=== PATIENT | female | born 1995 | race Two or more races ===

== ENCOUNTER 2020-06-11 16:41 | Outpatient (REF) | payer OTHER, SELFPAY ==
[2020-06-11 18:01] LABS: Alanine Aminotransferase 11 U/L (0-31); Albumin Level 4.3 g/dL (3.5-5.0); Alkaline Phosphatase 70 U/L (39-117); Anion Gap 11 (12-20); Aspartate Amino Transferase 17 U/L (5-31); Bilirubin Total 0.2 mg/dL (0.0-1.0); Blood Urea Nitrogen 16 mg/dL (9-16); Carbon Dioxide 25 mmol/L (22-29); Chloride 107 mmol/L (96-108); Cholesterol 150 mg/dL; Estimated Glomerular Filt Rate > 60; Glucose Random 85 mg/dL (60-115); HDL Cholesterol 48 mg/dL; LDL Cholesterol Calculated 88 mg/dl; Potassium 4.1 mmol/l (3.3-5.1); Sodium 139 mmol/L (135-145); Total Protein 7.3 g/dL (6.5-8.0); Triglycerides 74 mg/dL
== END 2020-06-11 16:42 | disposition home or self-care (01) ==
LOC: HO.LAB 16:41
PROVIDERS: Visit Provider Dermatology
DX: L70.0 Acne vulgaris (principal); L85.3 Xerosis cutis
CPT/HCPCS: 80053; 80061

== ENCOUNTER 2020-09-15 10:48 | Emergency (ER) | payer OTHER, SELFPAY ==
[2020-09-15 10:49] VITALS: BP 127/68; PULSE 120; RESP 18; TEMP 36.7; O2SAT 100; BMI 23.5
--- NOTE | 2020-09-15 14:39 | ED_ITS ---
HPI - Skin/Abscess/Foreign Bdy General Chief complaint: Skin/Abscess/Foreign Body Stated complaint: hard lump chest area Time Seen by Provider: 09/15/20 10:53 Source: patient Mode of arrival: ambulatory History of Present Illness HPI narrative: 24-year-old female with no significant past medical history presenting to the ED complaining of hard painful lump to left upper anterior chest wall x1 week. Reports was initially like a white head and she picked at it without drainage/success. Denies fever, chills, drainage from area, erythema MD complaint: abscess/boil Related Data Previous Rx's Medication Instructions Recorded cephalexin [Keflex] 500 mg PO Q6H 7 Days #28 cap 09/15/20 sulfamethoxazole-trimethoprim 1 tab PO Q12H 7 Days #14 tab 09/15/20 [Bactrim DS] Allergies Allergy/AdvReac Type Severity Reaction Status Date / Time Penicillins [PENICILLINS] Allergy Unknown ONLY Unverified 05/23/20 19:40 FAMILY HISTORY - WAS TOLD NOT TO TAKE Review of Systems Review of Systems: Constitutional: No Weight loss, No Fever, No Chills Cardiovascular: No Chest Pain, No SOB Respiratory: No Cough Musculoskeletal: No joint pain Skin: + Skin Lesions, No rash Yes all other systems are reviewed and are negative [facility] Past Medical History Attestation statement: The following information was validated with the patient. Social History Social History Advance Directives: No Advance Directives Information Provided: No Physical Exam Vital Signs: Vital Signs: Last Vital Signs Temp 98.0 F 09/15/20 10:49 Pulse 100 09/15/20 14:41 Resp 18 09/15/20 14:41 BP 127/68 09/15/20 10:49 Pulse Ox 100 09/15/20 10:49 Body Mass Index 23.5 Const: General: cooperative and healthy appearing Orientation/consciousness: patient oriented x3 Limitations: no limitations HENMT: Head: Yes normal to inspection Ears: hearing grossly normal bilaterally General nose exam: Normal external nose present Face and sinus: Yes normal facial exam Eyes: General: appearance normal, both eyes and all related structures EOM: EOMs intact bilaterally Neck: Neck: Yes normal visual inspection and Yes no meningeal signs Resp: Effort & Inspection: normal respiratory effort Cardio: Rate: regular rate Skin: Other: + hard small indurated abscess noted to left anterior upper chest wall. No pointing, no drainage, no cellulitis/erythema, no fluctuance Rashes: no rashes Neuro: General: patient oriented x3 and no meningeal signs Gait exam (Neuro): Normal gait present Extrem: General: Yes normal to inspection MDM - Skin/Abscess/Foreign Bdy MDM Narrative Medical decision making narrative: On exam initially tachycardic which resolved upon repeat, NAD/nontoxic appearing. Exam consistent with early/indurated abscess. Discussed worrisome signs and symptoms and strict return precautions Discharge Plan Discharge Clinical Impression: Abscess Patient Disposition: Home, Self-Care Instructions: Abscess (ED), Abscess Follow-up (ED) Additional Instructions: You have an early abscess of her skin, Keflex and Bactrim antibiotics, take as prescribed You may apply warm compresses If area begins look infected, is red, there is drainage, streaking, you have fever return to the ED Prescriptions: New cephalexin [Keflex] 500 mg capsule 500 mg PO Q6H 7 Days Qty: 28 RF: 0 sulfamethoxazole-trimethoprim [Bactrim DS] 800-160 mg tablet 1 tab PO Q12H 7 Days Qty: 14 RF: 0 Referrals: Ximena Tomas MD [Primary Care Provider] - 3 days
[2020-09-15 14:41] VITALS: PULSE 100; RESP 18
== END 2020-09-15 15:00 | disposition home or self-care (01) ==
PROVIDERS: Emergency Provider Emergency Medicine; PCP Pediatrics
DX: L02.213 Cutaneous abscess of chest wall (principal); R07.89 Other chest pain; Z79.899 Other long term (current) drug therapy
CPT/HCPCS: 99283

== ENCOUNTER 2020-09-30 16:35 | Outpatient (REF) | payer OTHER, SELFPAY ==
[2020-09-30 18:07] LABS: Alanine Aminotransferase 11 U/L (0-31); Albumin Level 4.4 g/dL (3.5-5.0); Alkaline Phosphatase 72 U/L (39-117); Aspartate Amino Transferase 22 U/L (5-31); Bilirubin Direct < 0.2 mg/dL (0.0-0.5); Bilirubin Total 0.4 mg/dL (0.0-1.0); Cholesterol 168 mg/dL; HDL Cholesterol 50 mg/dL; LDL Cholesterol Calculated 99 mg/dl; Total Protein 7.6 g/dL (6.5-8.0); Triglycerides 99 mg/dL
== END 2020-09-30 16:36 | disposition home or self-care (01) ==
LOC: HO.LAB 16:35
PROVIDERS: PCP Pediatrics; Visit Provider Physician Assistant Medical
DX: L70.0 Acne vulgaris (principal); M79.10 Myalgia, unspecified site; L85.3 Xerosis cutis; Z79.899 Other long term (current) drug therapy
CPT/HCPCS: 36415; 80061; 80076

== ENCOUNTER 2024-08-24 14:35 | Emergency (ER) | payer MEDICARE, OTHER, SELFPAY ==
--- NOTE | 2024-08-24 14:36 | ECG_ITS ---
Test Reason : chest pain Blood Pressure : / mmHG Vent. Rate : 103 BPM Atrial Rate : 103 BPM P-R Int : 118 ms QRS Dur : 074 ms QT Int : 322 ms P-R-T Axes : 071 046 010 degrees QTc Int : [address] depression inferior and anterolateral leads Abnormal ECG No previous ECGs available Referred By: Generic ED Physician Electronically Signed By:SATYA SCHULTE
[2024-08-24 14:42] VITALS: BP 111/66; PULSE 103; RESP 20; TEMP 37.6; O2SAT 100; BMI 24.4
--- NOTE | 2024-08-24 14:43 | ED.GENADULT ---
HPI - General Adult General Chief complaint: Chest Pain Stated complaint: Chest pain Time Seen by Provider: 08/24/24 16:14 Source: patient and RN notes reviewed Mode of arrival: ambulatory Limitations: no limitations History of Present Illness ED Provider: Gricelda Krishna PA-C HPI narrative: This is a 53-[id number]-female, with a hx of vitamin d deficiency and anemia, who presents to the ER due to generalized fatigue x 1 month. She states she started a new job which requires long days, working from 8am until 9pm. She states that she has had upper neck/shoulder pain, and has been very stressed with this job. She reports that she has not been eating food throughout the day as she is so busy. She states that she feels tired throughout the day. She denies any fevers, chills, chest pain, palpitations, abdominal pain, nausea, vomiting, diarrhea, constipation. No night sweats. She also reports that her left breast has been sore, no rashes, nipple discharge. She reports that this is typical before her menses - states that she is due to get her menses tomorrow. No other complaints or concerns at this time. MD complaint: fatigue Onset (ago): week(s) Relieving factors: none Exacerbating factors: none Associated symptoms: denies other symptoms Treatments prior to arrival: none Related Data Previous Rx's ?Medication ?Instructions ?Recorded cephalexin 500 mg capsule (Keflex) 500 mg PO Q6H 7 days #28 caps 09/15/20 sulfamethoxazole 800 1 tab PO Q12H 7 days #14 tabs 09/15/20 mg-trimethoprim 160 mg tablet (Bactrim DS) Allergies Allergy/AdvReac Type Severity Reaction Status Date / Time Penicillins [PENICILLINS] Allergy Unknown ONLY Verified 08/24/24 14:45 FAMILY HISTORY - WAS TOLD NOT TO TAKE Review of Systems Review of Systems: Yes all other systems are reviewed and are negative Constitutional: Constitutional: Reports as per [facility] Social History Social History Advance Directives: No Advance Directives Information Provided: No Do you have a plan to hurt others: No Plan Physical Exam ED Vital Signs: Vital Signs - 24 hr 08/24/24 14:42 08/24/24 17:27 08/24/24 18:01 Temperature 99.6 F 97.9 F 97.9 F Pulse Rate 103 H 100 100 Respiratory Rate 20 18 18 Blood Pressure 111/66 105/53 L 105/53 L Pulse Oximetry 100 99 99 Oxygen Delivery Method Room Air Room Air Room Air BMI result Body Mass Index 24.4 Const General: cooperative, comfortable and no acute distress Orientation/consciousness: patient oriented x3 Limitations: no limitations HENMT Head: Yes normal to inspection, Yes normocephalic and Yes atraumatic Ears: hearing grossly normal bilaterally General nose exam: Normal external nose present Face and sinus: Yes normal facial exam Mouth: Normal oral and palatal mucosa present, oropharynx normal and moist mucous membranes Throat: Yes posterior oropharynx normal Eyes General: appearance normal, both eyes and all related structures Eyelids: Yes eyelids normal Conjunctivae: conjunctivae normal Sclerae: sclerae normal Pupils: Equal, round and reactive pupils present EOM: EOMs intact bilaterally Neck Neck: Yes normal visual inspection, Yes full ROM, Yes no lymphadenopathy and Yes no meningeal signs Lymphatic: no lymphadenopathy noted Chest Other: Breast examination performed with orthotic finish grinding technician present. Left breast with no overlying skin changes. No masses palpated. no peau d' orange skin. no nipple discharge. fibrocystic breast tissue noted. Chest palpation & inspection: normal inspection of the chest Resp Effort & Inspection: normal respiratory effort and able to speak in complete sentences Auscultation: clear to auscultation bilaterally, no crackles, no rales, no rhonchi and no wheezes Cardio Rate: regular rate Rhythm: regular rhythm Heart sounds: S1 normal heart sound present and S2 normal heart sound present GI Inspection: Yes normal to inspection Back/Spine/Pelvis Other: Upper trapezius ttp with spasms noted. no midline spine ttp Skin General skin exam: no rashes or lesions noted Trauma: no lacerations or abrasions Wounds: no wounds Neuro General: patient oriented x3, moves all extremities and no meningeal signs Cranial nerves: Yes Equal, round and reactive pupils present Extrem General: Yes normal to inspection Right upper extremity: normal to inspection Left upper extremity: normal to inspection Right lower extremity: normal to inspection Left lower extremity: normal to inspection Course Course Course Narrative: This is a Rapid Medical Examination (RME) performed by Kranthi Nguyễn PA-C in triage. Full HPI, ROS, assessment and treatment plan per primary provider in the Main ED. 28 yo female with history of anemia and vit d deficiency who presents to the ER for evaluation of bilateral breast pain L>R for the last 1 week, bilateral shoulder pain and fatigue. she reports dizziness with standing as well. no sob. pain is in the left chest with palpation only. menstrual cycle due tomorrow Plan: Medical Decision Making Medical Decision Making [facility] Narrative: 28 y/o F who presents to the ER with complaints of fatigue. On arrival, pt well appearing, under no acute distress. She reports recent change in job which is demanding for her and is long hours. She has not been eating throughout the day. Labs were performed, she has no evidence of anemia, vitamin d level 35 which is on the lower end of normal > advised to try OTC supplementation. Left breast exam normal. pt had reassuring examation and workup today. She has had no red flag symptoms, no recent weight loss, chest pain, SOB, no changes in stool, no night sweats. Pt had normal examination therefore symptoms may be attributed to change in employment, stress and not eating throughout the day. Discussed the importance of eating throughout the day and f.u with PCP. Discussed returnn precautions. Stable for d.c, Differential Diagnosis Differential Diagnoses: The differential diagnosis associated with the presentation includes anemia, electrolyte derangement, viral syndrome, breast abscess Lab Data [facility] Lab Attestation statement: I reviewed the patient's lab results. No leukocytosis, stable H&H, chem WNL, TSH WNL, upreg neg, ua not infectious 08/24/24 15:26 08/24/24 15:26 Labs: Lab Results 08/24/24 08/24/24 Range/Units 15:26 15:28 WBC 7.9 (4.8-10.8) X10*3/uL RBC 4.02 L (4.20-5.50) X10*6/uL Hgb 12.6 (12.0-16.0) g/dl Hct 36.3 L (37.0-47.0) % MCV 90.3 (80.0-98.0) fL MCH 31.3 (27.0-33.0) pg MCHC 34.7 (31.0-35.0) g/dl RDW 13.2 (11.0-16.0) % Plt Count 189 (160-400) X10*3/uL MPV 11.0 (9.4-12.3) fL Immature Gran % (Auto) 0.3 (0.0-0.4) % Neut % (Auto) 82.9 H (45-73) % Lymph % (Auto) 11.8 L (20-40) % Person % (Auto) 4.9 (2-11) % Eos % (Auto) 0.0 (0-4) % Baso % (Auto) 0.1 (0-2) % Lymph # (Auto) 0.9 L (1.2-4.9) X10*3/uL Person # (Auto) 0.4 (0.1-1.2) X10*3/uL Eos # (Auto) 0.0 (0.0-0.4) X10*3/uL Baso # (Auto) 0.0 (0.0-0.2) X10*3/uL Abs Immat Gran (auto) 0.02 (0.00-0.03) X10*3/uL Absolute Neuts (auto) 6.6 (2.0-8.3) x10*3/uL Absolute Nucleated RBC 0.000 (0.0-0.012) X10*3/uL Nucleated RBC % (auto) 0.0 (0.0-0.2) /100WBC Sodium 139 (135-145) mmol/L Potassium 4.2 (3.3-5.1) mmol/L Chloride 108 (96-108) mmol/L Carbon Dioxide 23 (22-29) mmol/L Anion Gap 12 (12-20) BUN 11 (9-16) mg/dL Creatinine 0.71 (0.5-1.4) mg/dL Estim Creat Clear Calc 111.4 Estimated GFR > 60 Random Glucose 98 (60-115) mg/dL Calcium 9.2 (8.4-10.2) mg/dL Magnesium 1.9 (1.6-2.6) mg/dL Total Bilirubin 0.4 (0.0-1.0) mg/dL Direct Bilirubin 0.2 (0.0-0.5) mg/dL AST 20 (5-31) U/L ALT 13 (0-31) U/L Alkaline Phosphatase 54 (39-117) U/L Troponin I High Sens < 2.7 (<3.5-17.0) ng/L Total Protein 7.1 (6.5-8.0) g/dL Albumin 4.3 (3.5-5.0) g/dL 25-OH Vitamin D Total 35.7 (>30) ng/mL TSH 0.94 (0.32-4.0) uIU/mL Urine Color Yellow Urine Appearance Clear Urine pH 5.5 (5.0-9.0) Ur Specific [place] 1.020 (1.005-1.025) Urine Protein Negative (Neg-Trace) mg/dL Urine Glucose (UA) Negative (Negative) mg/dL Urine Ketones 80 (Negative) mg/dL Urine Blood Small (1+) H (Negative) Urine Nitrite Negative (Negative) Ur Leukocyte Esterase Negative (Negative) Urine RBC 3-5 H (0-2) /HPF Urine WBC 0-5 (0-5) /HPF Ur Squamous Epith Cells 3-5 (0-2) /HPF Urine Bacteria Trace (None Seen) Hyaline Casts 0-2 (0-2) /LPF Urine Test NEGATIVE (NEGATIVE) Independent Interpretation I performed an independent interpretation of an: EKG Interpretation: EKG sinus tach at 103bpm, no st elevation or depression. Discharge Plan Discharge Clinical Impression: Fatigue Patient Disposition: Home, Self-Care Instructions: Fatigue (ED) Additional Instructions: You were seen in the emergency department today. Your blood work was reassuring. Please drink plenty of fluids get plenty of rest. It is very important that you continue to eat throughout the day, small meals/snacks can be very beneficial. Follow-up with your primary care physician. If any new or worsening symptoms occur including but not limited to worsening breast pain, changes in skin overlying the breast, worsening fatigue, please seek emergent care. Prescriptions: No Action cephalexin [Keflex] 500 mg capsule 500 mg PO Q6H 7 Days Qty: 28 0RF sulfamethoxazole-trimethoprim [Bactrim DS] 800-160 mg tablet 1 tab PO Q12H 7 Days Qty: 14 0RF Stand Alone Forms: Work/School Release Interventions: ED Discharge Assessment Last Done: 08/24/24 18:01 Discharge Date/Time: 08/24/24 18:04 Print Language: Irish
[2024-08-24 15:33] LABS: MANUAL DIFF FLAG NO
[2024-08-24 15:37] LABS: Appearance Urine Clear; Color Urine Yellow; Glucose Urine UA Negative (Negative); Leukocyte Esterase Urine Negative (Negative); Nitrite Urine Negative (Negative); PH 5.5 (5.0-9.0); UMIC TRIGGER UACC YES; Urine Blood Small (1+) (Negative); Urine Ketones 80 mg/dL (Negative); Urine Protein Negative (Neg-Trace)
[2024-08-24 15:38] LABS: Basophils Percent Auto 0.1 % (0-2); Hematocrit 36.3 % (37.0-47.0); Hemoglobin 12.6 g/dl (12.0-16.0); Imm Gran Abs Auto 0.02 X10*3/uL (0.00-0.03); Imm Gran Pct Auto 0.3 % (0.0-0.4); Lymphocytes Absolute Auto 0.9 X10*3/uL (1.2-4.9); Lymphocytes Percent Auto 11.8 % (20-40); Mean Corpuscular HGB Conc 34.7 g/dl (31.0-35.0); Mean Corpuscular Hemoglobin 31.3 pg (27.0-33.0); Mean Corpuscular Volume 90.3 fL (80.0-98.0); Monocytes Absolute Auto 0.4 X10*3/uL (0.1-1.2); Monocytes Percent Auto 4.9 % (2-11); Neutrophils Absolute Auto 6.6 x10*3/uL (2.0-8.3); Neutrophils Percent Auto 82.9 % (45-73); Platelet Count 189 X10*3/uL (160-400); Red Blood Count 4.02 X10*6/uL (4.20-5.50); Red Cell Distribution Width 13.2 % (11.0-16.0); White Blood Count 7.9 X10*3/uL (4.8-10.8)
[2024-08-24 15:39] LABS: UPreg QC Valid YES; Urine Pregnancy NEGATIVE (NEGATIVE)
[2024-08-24 15:48] LABS: Bacteria Urine Trace (None Seen); Hyaline Casts Urine 0-2 /LPF (0-2); WBC Urine 0-5 /HPF (0-5)
[2024-08-24 16:04] LABS: Albumin Level 4.3 g/dL (3.5-5.0); Anion Gap 12 (12-20); Aspartate Amino Transferase 20 U/L (5-31); Bilirubin Direct 0.2 mg/dL (0.0-0.5); Bilirubin Total 0.4 mg/dL (0.0-1.0); Blood Urea Nitrogen 11 mg/dL (9-16); Calcium 9.2 mg/dL (8.4-10.2); Carbon Dioxide 23 mmol/L (22-29); Chloride 108 mmol/L (96-108); Creatinine Clr Calc Pharmacy 111.4; Estimated Glomerular Filt Rate > 60; Glucose Random 98 mg/dL (60-115); Magnesium 1.9 mg/dL (1.6-2.6); Potassium 4.2 mmol/L (3.3-5.1); Sodium 139 mmol/L (135-145); Total Protein 7.1 g/dL (6.5-8.0)
[2024-08-24 16:25] LABS: Alanine Aminotransferase 13 U/L (0-31); Alkaline Phosphatase 54 U/L (39-117); TSH reflex Free T4 0.94 uIU/mL (0.32-4.0)
[2024-08-24 17:05] LABS: Vitamin D 25-OH Total 35.7 ng/mL (>30)
[2024-08-24 17:10] LABS: Troponin-I High Sensitivity < 2.7 ng/L (<3.5-17.0)
[2024-08-24 17:27] VITALS: BP 105/53; PULSE 100; RESP 18; TEMP 36.6; O2SAT 99
[2024-08-24 18:01] VITALS: BP 105/53; PULSE 100; RESP 18; TEMP 36.6; O2SAT 99
== END 2024-08-24 18:04 | disposition home or self-care (01) ==
PROVIDERS: Physician Assistant; Physician Assistant Medical; Emergency Provider Emergency Medicine
DX: R53.83 Other fatigue (principal); R00.0 Tachycardia, unspecified; E55.9 Vitamin D deficiency, unspecified
CPT/HCPCS: 36415; 80048; 80076; 81001; 81025; 82306; 83735; 84443; 84484; 85025; 93005; 99283; 99284

== ENCOUNTER → 2024-08-24 14:36 | Outpatient (BNV) | payer MEDICARE, OTHER, SELFPAY | PROVIDERS: Emergency Provider Emergency Medicine; Visit Provider Internal Medicine | DX: R07.9 Chest pain, unspecified (principal); R00.0 Tachycardia, unspecified | CPT/HCPCS: 93010 ==

== ENCOUNTER 2024-09-09 12:48 | Emergency (ER) | payer OTHER, SELFPAY ==
--- NOTE | ~2024-09-09 | XR_ITS ---
CLINICAL HISTORY: pain 3 view right shoulder Comparison: None Findings: No fractures or dislocations. No significant loss of joint space or osteophytes. No erosions. No radiopaque foreign body. IMPRESSION: 1. No acute findings This document has been electronically signed by: Nelly Lora MD on 09/09/2024 14:00:05
--- NOTE | ~2024-09-09 | XR_ITS ---
CLINICAL HISTORY: neck pain 3 views cervical spine Comparison: CT/SR - CAT SCAN CERVICAL SPINE 45618 - 05/08/20 14:43 EDT Findings: The prior CT report is not available for review. No acute fractures or dislocation. Mild degenerative changes of the cervical spine with small osteophytes and mild narrowing of the C4-C5 intervertebral disc space. There is mild reversal of the cervical lordosis. Prevertebral soft tissues within normal limits. IMPRESSION: No acute findings. Mild degenerative changes. This document has been electronically signed by: Nelly Lora MD on 09/09/2024 16:34:03
--- NOTE | ~2024-09-09 | XR_ITS ---
CLINICAL HISTORY: pain 3 view left shoulder Comparison: None Findings: Bones intact. No dislocations. No significant loss of joint space or osteophytes. No erosions. No radiopaque foreign body. IMPRESSION: 1. No acute findings. This document has been electronically signed by: Nelly Lora MD on 09/09/2024 14:00:18
--- NOTE | 2024-09-09 13:04 | ED_ITS ---
HPI - Neck Pain/Injury General Chief Complaint: Extremity Injury, Upper Stated Complaint: l sided neck pain down into l arm Time Seen by Provider: 09/09/24 13:50 Source: patient and RN notes reviewed Mode of arrival: ambulatory Limitations: no limitations History of Present Illness ED Provider: Gricelda Krishna PA-C HPI Narrative: This is a 28-year-old female, with no known medical problems, who presents emergency department with complaints of upper back and neck pain for several months. Patient reports that she is under a lot of stress, and believes that she has muscle spasms in her upper neck and back. She states that she occasionally gets pain down her posterior arm, and into her fingers. She reports sometimes her fingers also go numb. She denies any recent trauma or injury to her back or neck. She reports that she does not have the greatest posture while she was at work. She has gone to a chiropractor, as well as gotten a massage in the past which has provided her with minimal relief. She also reports that she has been taking ibuprofen and Tylenol as needed for pain. Denies any fevers, chills, chest pain, shortness of breath, abdominal pain, nausea, vomiting or diarrhea. No other complaints or concerns at this time. MD complaint: upper back pain Onset (ago): month(s) Quality: burning, tingling and spasming Duration: constant Relieving factors: none Associated symptoms: none Treatments prior to arrival: none Related Data Previous Rx's ?Medication ?Instructions ?Recorded cephalexin 500 mg capsule (Keflex) 500 mg PO Q6H 7 days #28 caps 09/15/20 sulfamethoxazole 800 1 tab PO Q12H 7 days #14 tabs 09/15/20 mg-trimethoprim 160 mg tablet (Bactrim DS) acetaminophen 500 mg tablet 1,000 mg (2 x 500 mg) PO .Q8Hr PRN 09/09/24 (Tylenol Extra Strength) pain #30 tabs cyclobenzaprine 10 mg tablet 10 mg PO TID PRN muscle spasm #12 09/09/24 tabs ibuprofen 600 mg tablet 600 mg PO Q6H PRN pain #30 tabs 09/09/24 lidocaine 5 % topical patch 1 patch topical DAILY #30 ea 09/09/24 (Lidoderm) Allergies Allergy/AdvReac Type Severity Reaction Status Date / Time Penicillins [PENICILLINS] Allergy Unknown ONLY Verified 09/09/24 13:08 FAMILY HISTORY - WAS TOLD NOT TO TAKE Review of Systems Review of Systems: Yes all other systems are reviewed and are negative Constitutional: Constitutional: Reports as per [facility] Social History Social History Advance Directives: No Advance Directives Information Provided: No Physical Exam Vital Signs: Vital Signs: Last Vital Signs Temp 97.6 F 09/09/24 17:23 Pulse 105 H 09/09/24 17:23 Resp 18 09/09/24 17:23 BP 106/78 09/09/24 17:23 Pulse Ox 98 09/09/24 17:23 O2 Del Method Room Air 09/09/24 17:23 BMI result Body Mass Index 24.9 Const: General: cooperative, comfortable and no acute distress Orientation/consciousness: patient oriented x3 Limitations: no limitations HEENT: Head: Yes normal to inspection, Yes normocephalic and Yes atraumatic Ears: hearing grossly normal bilaterally General nose exam: Normal external nose present Face and sinus: Yes normal facial exam Mouth: Normal oral and palatal mucosa present, oropharynx normal and moist mucous membranes Throat: Yes posterior oropharynx normal Eyes: General: appearance normal, both eyes and all related structures Eyelids: Yes eyelids normal Conjunctivae: conjunctivae normal Sclerae: sclerae normal Pupils: Equal, round and reactive pupils present EOM: EOMs intact bilaterally Neck: Other: No midline spine tenderness on examination, she does have tenderness palpation along the cervical paraspinous muscles Neck: Yes normal visual inspection, Yes full ROM and Yes no lymphadenopathy Lymphatic: no lymphadenopathy noted Chest: Chest palpation & inspection: normal inspection of the chest Resp: Effort & Inspection: normal respiratory effort and able to speak in complete sentences Auscultation: clear to auscultation bilaterally, no crackles, no rales, no rhonchi and no wheezes Cardio: Rate: regular rate Rhythm: regular rhythm Heart sounds: S1 normal heart sound present and S2 normal heart sound present GI: Inspection: Yes normal to inspection Back/Spine/Pelvis: Other: extending into the left subscapular region, with spasm noted. Pain elicited with movement of her left shoulder. No overlying skin changes or rashes noted. She reports some pain extending down into her posterior arm overlying her tricep. Skin: General skin exam: no rashes or lesions noted Trauma: no lacerations or abrasions Wounds: no wounds Neuro: General: patient oriented x3 and moves all extremities Cranial nerves: Yes Equal, round and reactive pupils present Extrem: General: Yes normal to inspection Right upper extremity: normal to inspection Left upper extremity: normal to inspection Right lower extremity: normal to inspection Left lower extremity: normal to inspection Course Course Course Narrative: This is a Rapid Medical Exam performed in triage by Tracy Espinosa PA-C. Full HPI, ROS and PE to be performed by primary ED provider. 28 yo F presenting to the ED c/o bilateral shoulder pain radiating to neck and left scapula x months. +intermittent with associated LUE tingling. denies known injury/fall. denies MVA, chiropractor PE: comfortable, nontoxic appearing. Plan: EKG, XRs Medical Decision Making Medical Decision Making [facility] Narrative: This is a 28-year-old female who presents emergency department with complaints of left-sided neck pain extending down into her left arm. This has been ongoing for several months. On arrival, patient mildly tachycardic at 105bpm, all other vital signs within normal limits. She is speaking full sentences under no acute distress. She has tenderness palpation along the left cervical paraspinous muscles extending into her left trapezius, with spasms noted. X-rays were obtained of her shoulders which were unremarkable. Given pain radiating down into her left arm, a cervical spine x-ray was obtained, she does have degenerative changes seen at her C4-C5 region, which may explain cervical radiculopathy like symptoms. I did explain this to patient. Will treat with anti-inflammatories, Tylenol, also given muscle relaxants as I believe she also has muscle spasms which is contributing to her symptoms. She will follow-up with a primary care physician. She has called multiple facilities and they are not accepting patients. I encouraged her to continue trying. Given strict return precautions. She understands agrees with plan. Patient stable for discharge Differential Diagnosis Differential Diagnoses: The differential diagnosis associated with the presentation includes Cervical radiculopathy, muscle spasms, cervical strain Admission/Observation Consideration of admission/observation: Escalation of care including admission/observation considered Radiology Impression Discussion of test interpretation with radiology: I have reviewed the radiologist's reading. Radiologist Impression: Findings: The prior CT report is not available for review. No acute fractures or dislocation. Mild degenerative changes of the cervical spine with small osteophytes and mild narrowing of the C4-C5 intervertebral disc space. There is mild reversal of the cervical lordosis. Prevertebral soft tissues within normal limits. IMPRESSION: No acute findings. Mild degenerative changes. This document has been electronically signed by: Nelly Lora MD on 09/09/2024 16:34:03 Findings: Bones intact. No dislocations. No significant loss of joint space or osteophytes. No erosions. No radiopaque foreign body. IMPRESSION: 1. No acute findings. This document has been electronically signed by: Nelly Lora MD on 09/09/2024 14:00:18 Dictated By: Nelly Lora MD Signed By: <Electronically signed by Nelly Lora MD in [place]> CLINICAL HISTORY: pain 3 view right shoulder Comparison: None Findings: No fractures or dislocations. No significant loss of joint space or osteophytes. No erosions. No radiopaque foreign body. IMPRESSION: 1. No acute findings This document has been electronically signed by: Nelly Lora MD on 09/09/2024 14:00:05 Dictated By: Nelly Lora MD Signed By: <Electronically signed by Nelly Lora MD in [place]> Discharge Plan Discharge Clinical Impression: Spasm of left trapezius muscle, Cervical radiculopathy Patient Disposition: Home, Self-Care Instructions: Cervical Radiculopathy (ED), Muscle Spasm (ED) Additional Instructions: You were seen in the emergency department due to upper back pain, and shoulder pain. You Your shoulder x-ray do not show any bony abnormality. Your x-ray of your neck does reveals small osteophytes and mild narrowing of the C4-C5 disc space, this may be the source of some pain. You need to have a primary care physician for follow-up as referral to physical therapy can help with this. Alternating between ibuprofen and Tylenol as needed for pain. You may take muscle relaxants as needed for pain. Gentle stretching, heat or ice can also help. If any new or worsening symptoms occur including but not limited to worsening pain, fevers, chills, chest pain, shortness for breath, please seek emergent care. You can try to follow-up with the [facility]. I am also giving you a referral to Dr. Astorga who is located on [address] [place] [address]. [phone] Prescriptions: New ibuprofen 600 mg tablet 600 mg PO Q6H PRN (Reason: pain) Qty: 30 0RF acetaminophen [Tylenol Extra Strength] 500 mg tablet 1,000 mg PO .Q8Hr PRN (Reason: pain) Qty: 30 0RF cyclobenzaprine 10 mg tablet 10 mg PO TID PRN (Reason: muscle spasm) Qty: 12 0RF lidocaine [Lidoderm] 5 % adhesive patch,medicated 1 patch topical DAILY Qty: 30 0RF Rx Instructions: leave on most painful area for up to 12 hrs No Action cephalexin [Keflex] 500 mg capsule 500 mg PO Q6H 7 Days Qty: 28 0RF sulfamethoxazole-trimethoprim [Bactrim DS] 800-160 mg tablet 1 tab PO Q12H 7 Days Qty: 14 0RF Referrals: [facility] [Physician] - Interventions: ED Discharge Assessment Last Done: 09/09/24 17:23 Discharge Date/Time: 09/09/24 17:29 Print Language: Indian
[2024-09-09 13:05] VITALS: BP 106/78; PULSE 105; RESP 18; TEMP 36.4; O2SAT 98; BMI 24.9
--- NOTE | 2024-09-09 13:07 | ECG_ITS ---
Test Reason : LUE TIRGLING Blood Pressure : / mmHG Vent. Rate : 111 BPM Atrial Rate : 111 BPM P-R Int : 112 ms QRS Dur : 078 ms QT Int : 294 ms P-R-T Axes : 072 039 018 degrees QTc Int : 399 ms Sinus tachycardia Anterior infarct , age undetermined Abnormal ECG When compared with ECG of 24-AUG-2024 14:41, No significant change was found Referred By: Tracy Espinosa Electronically Signed By:SUKUMAR ROSEN MD
[2024-09-09 17:23] VITALS: BP 106/78; PULSE 105; RESP 18; TEMP 36.4; O2SAT 98
== END 2024-09-09 17:29 | disposition home or self-care (01) ==
PROVIDERS: Emergency Provider Emergency Medicine
DX: M62.838 Other muscle spasm (principal); M54.12 Radiculopathy, cervical region; M54.2 Cervicalgia; R20.2 Paresthesia of skin
CPT/HCPCS: 72040; 73030; 93005; 99283

== ENCOUNTER → 2024-09-09 13:07 | Outpatient (BNV) | payer OTHER, SELFPAY | PROVIDERS: Emergency Provider Emergency Medicine; Visit Provider Internal Medicine Cardiovascular Disease | DX: R00.0 Tachycardia, unspecified (principal); R94.31 Abnormal electrocardiogram [ECG] [EKG] | CPT/HCPCS: 93010 ==

== ENCOUNTER 2025-03-08 09:02 | Outpatient (REF) | payer OTHER, SELFPAY ==
--- OUTSIDE RECORDS SUMMARY | 2025-03-08 09:16 | XMS_ITS | Encounter Summary ---
Author Organization [facility] Address [address] [place] [address] Phone Care Team Providers Care Irrigation Equipment Remover Name Role Phone Ximena Tomas MD Primary Care Provider [phone] Encounter Details Date Type Department Care Team (Late st Contact Info) Description 08/16/2013 Conversion Encounter [facility] [address] [facility] [place] [address] Social History Tobacco Use Types Packs/Day Years Used Date Smoking Tobacco: Never Comments:Never Smoker Comments Unknown Sex and Gender Information Value Date Recorded Sex Assigned at Female 12/06/2019 1:16 PM EDT Legal Sex Female 6:13 PM EDT Gender Identity Female 12/06/2019 1:16 PM EDT Sexual Orientation Straight 12/06/2019 1: 16 PM EDT documented as of this encounter Plan of Treatment Not on file documented as of this encounter Visit Diagnoses Not on filedocumented in this encounter Care Teams Irrigation Equipment Remover Relationship Specialty Start Date End Date Ximena Tomas MD PCP - General 01/12/18 documented as of this encounter
--- OUTSIDE RECORDS SUMMARY | 2025-03-08 09:16 | XMS_ITS | Clinical Summary ---
Author Organization [facility] Address [address] [place] [address] Phone Care Team Providers Care Client Service And Consulting Manager Name Role Phone Physician, No Pcp Primary Care Provider Unavaila ble Allergies No known active allergies Social History Tobacco Use Types Packs/Day Years Used Date Smoking Tobacco: Never Assessed Comments Unknown Sex and Gender Information Value Date Recorded Sex Assigned at Not on file Legal Sex Female 10:02 AM EST Gender Identity Not on file Sexual Orientation Not on file Last Filed Vital Signs Vital Sign Reading Time Taken Comments Blood Pressure 106/74 10/03/2024 2:54 PM EST Pulse 108 10/03/2024 2:54 PM EST Temperature 36.6 C (97.9 F) 10/03/2024 2:54 PM EST Respiratory Rate 14 10/03/2024 2:54 PM EST Oxygen Saturation 100% 10/03/2024 2:54 PM EST Inhaled Oxygen Concentration - - Weight 68 kg (150 lb) 10/03/2024 10:00 AM EST Height 167.6 cm (5' 6 ) 10/03/2024 10:00 AM EST Body Mass Index 24.21 10/03/2024 10:00 AM EST Plan of Treatment Health Maintenance Due Date Last Done Comments Cervical Cancer Screening: Pap Smear 2017 COVID-19 Vaccine ( season) 2024 02/11/2022, 12/26/2021 Depression Screening 10/03/2024 HIV Screening 10/03/2024 Hepatitis C Screening 10/03/2024 Social Influencers of Health Screening 10/03/2024 Influenza Vaccine (Season Ended) 2025 06/30/2023, 06/30/2022 DTaP,Tdap,and Td Vaccines (6 - Td or Tdap) 07/04/2034 07/04/2024, 05/20/2012, 10/01/2011, Additional history exists MMR Vaccines Completed 01/14/2011, 12/15/2010 Hepatitis A Vaccines Completed 10/01/2011, 01/29/20 11 Hepatitis B Vaccines Completed 10/01/2011, 01/14/2011, 12/15/2010 IPV Vaccines Completed 02/03/2013, 01/04, 12/15/2010, Additional history exists Meningococcal ACWY Vaccine Completed 09/09/2015, HPV Vaccines Completed 04/30/2021, 01/2018, 09/25/2016 HIB Vaccines Aged Out No longer eligi ble based on patient's age to complete this topic Meningococcal B Vaccine Aged Out No l onger eligible based on patient's age to complete this topic Pneumococcal Vaccine: Pediatrics (0 to 5 Years) and At-Risk Patients (6 to 64 Years) Aged Out No longer eligible based on patient's age to complete this topic RSV Immunization Patients Under 20 months Aged Out No longer eligible based on patient's age to complete this topic Varicella Vaccines Aged Out No longer eligible based on patient's age to complete this topic Insurance MEDICAID - [place] Care Teams Client Service And Consulting Manager Relationship Specialty Start Date End Date Physician, No Pcp PCP - General 10/03/24
[2025-03-08 09:29] LABS: MANUAL DIFF FLAG NO
[2025-03-08 09:39] LABS: Hematocrit 43.4 % (37.0-47.0); Hemoglobin 14.9 g/dl (12.0-16.0); Imm Gran Abs Auto 0.03 X10*3/uL (0.00-0.03); Imm Gran Pct Auto 0.3 % (0.0-0.4); Lymphocytes Absolute Auto 2.5 X10*3/uL (1.2-4.9); Mean Corpuscular HGB Conc 34.3 g/dl (31.0-35.0); Mean Corpuscular Hemoglobin 31.4 pg (27.0-33.0); Mean Corpuscular Volume 91.6 fL (80.0-98.0); NRBC Abs Auto 0.000 X10*3/uL (0.0-0.012); NRBC Pct Auto 0.0 /100WBC (0.0-0.2); Platelet Count 219 X10*3/uL (160-400); Red Blood Count 4.74 X10*6/uL (4.20-5.50); White Blood Count 8.8 X10*3/uL (4.8-10.8)
[2025-03-08 10:27] LABS: Alanine Aminotransferase 14 U/L (0-31); Albumin Level 4.7 g/dL (3.5-5.0); Alkaline Phosphatase 58 U/L (39-117); Anion Gap 9 (12-20); Aspartate Amino Transferase 17 U/L (5-31); Blood Urea Nitrogen 14 mg/dL (9-16); Calcium 9.3 mg/dL (8.4-10.2); Carbon Dioxide 26 mmol/L (22-29); Chloride 105 mmol/L (96-108); Estimated Glomerular Filt Rate > 60; Magnesium 2.2 mg/dL (1.6-2.6); Potassium 3.9 mmol/L (3.3-5.1); Sodium 136 mmol/L (135-145); Total Protein 7.6 g/dL (6.5-8.0)
== END 2025-03-08 09:03 | disposition home or self-care (01) ==
LOC: HO.LAB 09:02
PROVIDERS: PCP Internal Medicine; Visit Provider Internal Medicine
DX: G57.71 Causalgia of right lower limb (principal); N94.6 Dysmenorrhea, unspecified; R25.3 Fasciculation; Z00.00 Encounter for general adult medical examination without abnormal findings
CPT/HCPCS: 36415; 80053; 82306; 83735; 85025

== ENCOUNTER 2025-04-06 11:47 | Emergency (ER) | payer OTHER, SELFPAY ==
[2025-04-06 12:01] VITALS: BP 109/71; PULSE 87; RESP 16; TEMP 36.7; O2SAT 100; BMI 23.6
--- NOTE | 2025-04-06 12:02 | ED.GENADULT ---
HPI - General Adult General Chief complaint: General Medical Stated complaint: Lump/pain L breast Time Seen by Provider: 04/06/25 12:09 Source: patient Mode of arrival: ambulatory Limitations: no limitations History of Present Illness ED Provider: Franklin Murray PA-C HPI narrative: 29-year-old female with a history of fibrocystic breasts presents to the ED due to concerns over left breast lump. Patient states over the last week she has noticed a left breast lump, is movable, does not her but becomes irritated after continuous manipulation. Patient states last menstrual period was 03/16. Patient denies drainage from the left breast, skin changes over left breast, fever, chills Related Data Previous Rx's ?Medication ?Instructions ?Recorded cephalexin 500 mg capsule (Keflex) 500 mg PO Q6H 7 days #28 caps 09/15/20 sulfamethoxazole 800 1 tab PO Q12H 7 days #14 tabs 09/15/20 mg-trimethoprim 160 mg tablet (Bactrim DS) acetaminophen 500 mg tablet 1,000 mg (2 x 500 mg) PO .Q8Hr PRN 09/09/24 (Tylenol Extra Strength) pain #30 tabs cyclobenzaprine 10 mg tablet 10 mg PO TID PRN muscle spasm #12 09/09/24 tabs ibuprofen 600 mg tablet 600 mg PO Q6H PRN pain #30 tabs 09/09/24 lidocaine 5 % topical patch 1 patch topical DAILY #30 ea 09/09/24 (Lidoderm) Allergies Allergy/AdvReac Type Severity Reaction Status Date / Time Penicillins (PENICILLINS) Allergy Unknown ONLY Verified 04/06/25 12:07 FAMILY HISTORY - WAS TOLD NOT TO TAKE Review of Systems Review of Systems: CONST: Negative for fever, body aches and chills. HENT: Negative for neck pain/stiffness, headache, congestion, sore throat, swelling. EYES: Negative for discharge/pain or vision changes. RESP: Negative for cough/hemoptysis and shortness of breath. CV: Negative chest pain, difficulty breathing, palpitations. ABD: Negative pain, nausea, vomiting. BREAST: POS L breast lump : Negative increase frequency, dysuria, blood in urine or stool. MUSC: Negative for muscle aches, edema. SKIN: Negative rash, lesions/sores. NEURO: Negative headache, dizziness, weakness. Yes all other systems are reviewed and are negative FOR[facility]LY [facility], [facility] Past Medical History Attestation statement: The following information was validated with the patient. Source: old records reviewed and nursing notes reviewed Social History Social History Smoked in Last 30 Days: No Use of substances other than those prescribed or required for medical reasons: No Advance Directives: No Advance Directives Information Provided: No Do you have a plan to hurt others: No Plan Patient : No Physical Exam ED Vital Signs: Vital Signs - 24 hr 04/06/25 12:01 Temperature 98.0 F Pulse Rate 87 Respiratory Rate 16 Blood Pressure 109/71 Pulse Oximetry 100 Oxygen Delivery Method Room Air BMI result Body Mass Index 23.6 GENERAL APPEARANCE: ?AxOx4, generally well-appearing, no acute distress. HEENT: ?NC, AT. MMM. EOMI, clear conjunctiva, oropharynx clear. NECK: ?Supple without lymphadenopathy.? No stiffness or restricted ROM. HEART:? Normal rate and regular rhythm, normal S1/S1, no m/r/g LUNGS:? CTAB, moving air well. No crackles or wheezes are heard. BREAST: Left breast with normal contour, no visual abnormalities, lesions, no dimpling, no orange peel skin, no overlying skin changes, no drainage expressed from left nipple, no nipple inversion. There is normal breast tissue felt at the 3 o'clock position, consistent with polycystic breasts, tissue was movable, no tenderness to palpation. No axillary lymphadenopathy. EXTREMITIES: ?Without cyanosis, clubbing or edema. NEUROLOGICAL: ?Grossly nonfocal. Alert and oriented, moving all 4 extremities. Observed to ambulate with normal gait. Skin: ?Warm and dry without any rash. Course Course Course Narrative: This is an RME performed by Bruno Cao CNP: Additional HPI, ROS, PE not included below will be deferred to primary provider. Patient is a 29-year-old female who presents emergency department for evaluation of a Painful lump to upper left breast, with family history of breast cancer. Medical Decision Making Medical Decision Making MDM Narrative: 29-year-old female with a history of fibrocystic breasts presents to the ED due to concerns over left breast lump. Patient states over the last week she has noticed a left breast lump, is movable, does not her but becomes irritated after continuous manipulation. Patient states last menstrual period was 03/16. Patient denies drainage from the left breast, skin changes over left breast, fever, chills VSS, patient well-appearing, nontoxic appearing, in no acute distress. Physical exam reveals Left breast with normal contour, no visual abnormalities, lesions, no dimpling, no orange peel skin, no overlying skin changes, no drainage expressed from left nipple, no nipple inversion. There is normal breast tissue felt at the 3 o'clock position, consistent with fibrocystic breasts, tissue was movable, no tenderness to palpation. No axillary lymphadenopathy- less likely breast abscess, cellulitis, peau d'orange, IDC I believe patient has normal polycystic breast tissue of the left breast, patient without addiction therapist. I called [facility] to get patient in for evaluation ultrasound. They are able to take patient on Wednesday04/11/25 at 8:00 a.m. for further evaluation. I counseled patient that her physical exam findings were reassuring that there was no hard, fixed mass of the breast, skin changes, or drainage from the left nipple. I also provided patient with information for Gynecology and discharge paperwork. Patient is in agreement with the plan Differential Diagnosis Differential Diagnoses: The differential diagnosis associated with the presentation includes Peau d'orange IDC Breast abscess Cellulitis Polycystic breast Admission/Observation Consideration of admission/observation: Escalation of care including admission/observation considered Radiology Impression Radiologist Impression: L breast US External Record Review External record reviewed: Inpatient record, Office record and Outpatient record Discharge Plan Discharge Clinical Impression: Breast pain, left Patient Disposition: Home, Self-Care Instructions: Fibrocystic Breast Changes (ED) Additional Instructions: You were evaluated in the ED today due to concerns over a palpated mass of your left breast. Your physical exam was reassuring as you did not have any skin changes, skin dimpling, discharge from the nipple, hard/fixed masses, warmth over the breast, redness of the breast. I booked an appointment with the [facility] [place] for an ultrasound to evaluate the mass you felt. Your appointment is for Wednesday04/11/25 at 8:00 a.m. Please follow up with your primary care provider to ensure improvement. I have provided information for Gynecology, you need to call their office to set up an appointment for follow up. Please return to the ED if you experience fevers over 100.4?, chills, worsening pain of the left breast, skin changes of the left breast including redness, dimpling, discharge from the left nipple or any new/worsening/concerning symptoms. YOUR APPOINTMENT IS 04/11/25 AT 8AM AT THE [facility] [address] [place] [address] [place] [address]. [phone] [facility] [address] [facility] [phone] [facility] [address] [facility] [address] [place] [address] [phone] OBGYN and Midwifery [facility] [address] [place] [address] [phone] [facility] [phone] Prescriptions: No Action cephalexin [Keflex] 500 mg capsule 500 mg PO Q6H 7 Days Qty: 28 0RF sulfamethoxazole-trimethoprim [Bactrim DS] 800-160 mg tablet 1 tab PO Q12H 7 Days Qty: 14 0RF ibuprofen 600 mg tablet 600 mg PO Q6H PRN (Reason: pain) Qty: 30 0RF acetaminophen [Tylenol Extra Strength] 500 mg tablet 1,000 mg PO .Q8Hr PRN (Reason: pain) Qty: 30 0RF cyclobenzaprine 10 mg tablet 10 mg PO TID PRN (Reason: muscle spasm) Qty: 12 0RF lidocaine [Lidoderm] 5 % adhesive patch,medicated 1 patch topical DAILY Qty: 30 0RF Rx Instructions: leave on most painful area for up to 12 hrs Print Language: [place]ese
--- OUTSIDE RECORDS SUMMARY | 2025-04-06 12:18 | XMS_ITS | Clinical Summary ---
Author Organization [facility] Address [address] [place] [address] Phone Care Team Providers Care Manager Surgery Name Role Phone Physician, No Pcp Primary [...] ( season) 2024 02/11/2022, 12/26/2021 Depression Screening 09/06/2024 HIV Screening 10/03/2024 Hepatitis C Screening 10/03/2024 Social Influencers of Health Screening 10/03/2024 Influenza Vaccine (#1) 2025 06/30/2023, 2021 DTaP,Tdap,and Td Vaccines (6 - Td or [...] 5 Years) and At-Risk Patients (6 to 49 Years) Aged Out No longer eligible based on patient's age to complete this topic RSV Immunization Patients Under 20 months Aged Out No longer eligible based on patient's age to complete this topic Varicella Vaccines Aged Out No longer eligible based on patient's age to complete this topic Insurance MEDICAID - [place] Care Teams Manager Surgery Relationship Specialty Start Date End Date Physician, No Pcp PCP - General 10/03/24
--- OUTSIDE RECORDS SUMMARY | 2025-04-06 12:18 | XMS_ITS | Encounter Summary ---
Author Organization [facility] Address [address] [place] [address] Phone Care Team Providers Care Neurology Manager Name Role Phone Ximena Tomas MD Primary Care Provider [phone] Encounter Details Date Type Department Care Team (Late st Contact Info) Description 08/16/2013 Conversion Encounter [facility] [address] [facility] [place] [address] Social History Tobacco Use Types Packs/Day Years [...] on filedocumented in this encounter Care Teams Neurology Manager Relationship Specialty Start Date End Date Ximena Tomas MD PCP - General 01/12/18 documented as of this encounter
[2025-04-06 13:46] VITALS: BP 108/73; PULSE 82; RESP 16; TEMP 36.7; O2SAT 100
== END 2025-04-06 13:47 | disposition home or self-care (01) ==
PROVIDERS: Emergency Provider Emergency Medicine Emergency Medical Services; PCP Internal Medicine
DX: N64.4 Mastodynia (principal); N63.0 Unspecified lump in unspecified breast
CPT/HCPCS: 99283; 99284

== ENCOUNTER 2025-04-10 09:18 | Outpatient (REF) | payer OTHER, SELFPAY ==
--- NOTE | ~2025-04-10 | US_ITS ---
EXAMINATION: US DIAGNOSTIC ULTRASOUND BREAST, LEFT CLINICAL INFORMATION: -Reason for exam: Left breast mass at 3:00. -According to the EMR notes from April 06, 2025, patient presented to the ED due to concerns of her left breast lump. On physical examination, there is normal breast tissue felt at the 3 o'clock position, consistent with polycystic breasts . -According to the patient, the left breast palpable concern is located at 12 o'clock position. COMPARISON: None available. TECHNIQUE: Ultrasound of the breast is performed with real-time allen scale imaging and color Doppler. FINDINGS: Targeted ultrasound of the left breast was performed at the location of the palpable concern as follows: -At the location of the palpable concern as indicated by the patient at 12 o'clock position 3 cm from the nipple. There is an area of breast tissue associated with small cystic changes. No abnormal vascularity demonstrated with color Doppler evaluation. -At the location described on the requisition along the 3:00 axis. No abnormal sonographic findings seen during the survey. US/US breast LT limited mamm only IMPRESSION: -Fibrocystic changes at the 12 o'clock position 3 cm from the nipple. Benign, no evidence of malignancy. Clinical follow-up is recommended, independent of the imaging findings. Findings were conveyed to the patient via manufacturing engineering technologist. ASSESSMENT: BI-RADS 2 - Benign Findings RECOMMENDATION: 1. Patient should be managed based on the clinical impression. 2. Otherwise, routine annual screening mammography. This patient's information was entered into a reminder system with a target due date for their next mammogram. Electronically signed by: Orlando Chaudhary MD 04/10/2025 10:13 AM EDT
--- OUTSIDE RECORDS SUMMARY | 2025-04-10 09:40 | XMS_ITS | Encounter Summary ---
Author Organization [facility] Address [address] [place] [address] Phone Care Team Providers Care Home Care Manager Rn Name Role Phone Ximena Tomas MD Primary Care Provider [phone] Encounter Details Date Type Department Care Team (Late st Contact Info) Description 08/16/2013 Conversion Encounter [facility] [address] [facility] [place] [address] Social History Tobacco Use Types Packs/Day Years [...] on filedocumented in this encounter Care Teams Home Care Manager Rn Relationship Specialty Start Date End Date Ximena Tomas MD PCP - General 01/12/18 documented as of this encounter
--- OUTSIDE RECORDS SUMMARY | 2025-04-10 09:40 | XMS_ITS | Clinical Summary ---
Author Organization [facility] Address [address] [place] [address] Phone Care Team Providers Care Bakery Team Leader Name Role Phone Physician, No Pcp Primary [...] topic Insurance MEDICA[place] - [place] Care Teams Bakery Team Leader Relationship Specialty Start Date End Date Physician, No Pcp PCP - General 10/03/24
== END 2025-04-10 09:19 | disposition home or self-care (01) ==
LOC: HO.MAMMO 09:18
PROVIDERS: PCP Internal Medicine
DX: N63.25 Unspecified lump in the left breast, overlapping quadrants (principal)
CPT/HCPCS: 76642

== ENCOUNTER → 2025-04-10 09:30 | Outpatient (BNV) | payer OTHER, SELFPAY | PROVIDERS: PCP Internal Medicine; Visit Provider Radiology Body Imaging | DX: N63.23 Unspecified lump in the left breast, lower outer quadrant (principal) | CPT/HCPCS: 76642 ==